=== PATIENT | male | born 1950 | race Caucasian/White ===

== ENCOUNTER 2023-04-28 10:30 | Outpatient (OUT) | payer MEDICARE, SELFPAY ==
--- NOTE | 2023-04-28 11:27 | XR_ITS ---
[facility] [place] [id number] Patient Name: PETROS BURK MRN: [id number] date: 1950 Sex: M Assigned Patient Location: [facility] Current Patient Location: [facility] Accession/Order Number: [id number] Exam Date: 04/28/2023 11:00 Report Date: 04/28/2023 15:19 At the request of: MIGDALIA SARGENT Procedure: XR lumbar spine 6V w bending XR lumbar spine 6V w bending, 04/28/2023 11:00 AM EDT, [place]001 INDICATION: Low back pain M54.50 COMPARISON: None TECHNIQUE: 7 images are submitted, including bilateral oblique and lateral flexion and extension views. FINDINGS: The vertebral bodies demonstrate normal sagittal alignment. There is slight anterolisthesis of L4 on L5 with flexion. No increased motion is seen with extension. No acute fracture or subluxation is identified. There is disc space narrowing at L5-S1, and mild endplate osteophyte formation throughout the lumbar spine. There is sclerosis of the facet joints at L4-L5 and L5/S1, and to a lesser extent at L3-L4. The oblique views demonstrate no evidence of spondylolysis. The visualized soft tissues appear unremarkable. XR/XR lumbar spine 6V w bending IMPRESSION: Degenerative changes. Slight increased motion is seen at L4-L5 with flexion. No acute fracture or subluxation is seen. Electronically authenticated by: WENDY ESCOBAR Date: 04/28/2023 15:19
== END 2023-04-28 10:31 | disposition home or self-care (01) ==
LOC: RAD 10:37
PROVIDERS: PCP Internal Medicine; Visit Provider Internal Medicine
DX: M54.50 Low back pain, unspecified (principal)
CPT/HCPCS: 72114

== ENCOUNTER 2023-05-05 10:51 | Outpatient (OUT) | payer MEDICARE, SELFPAY ==
[2023-05-05 11:36] LABS: Basophils Percent Auto 0.3 % (0.2-2.0); Eosinophils Percent Auto 0.5 % (0.9-7.0); Hematocrit 42.8 % (42.0-54.0); Hemoglobin 14.5 g/dL (14.0-18.0); Immature Granulocytes Abs Auto 0.03 10^3/uL (0.00-0.03); Immature Granulocytes Pct Auto 0.5 % (0.0-0.5); Lymphocytes Absolute Auto 1.2 10^3/uL (1.2-3.8); Lymphocytes Percent Auto 17.5 % (20.5-60.0); Mean Corpuscular HGB Conc 33.9 g/dL (29.9-35.2); Mean Corpuscular Hemoglobin 30.9 pg (25.9-34.0); Mean Corpuscular Volume 91.3 fL (80.0-94.0); Mean Platelet Volume 11.4 fL (9.5-13.5); Monocytes Absolute Auto 0.6 10^3/uL (0.3-0.8); Monocytes Percent Auto 9.4 % (1.7-12.0); Neutrophils Absolute Auto 4.7 10^3/uL (1.4-6.5); Neutrophils Percent Auto 71.8 % (43.0-75.0); Platelet Count 133 10^3/uL (150-450); Red Blood Count 4.69 10^6/uL (4.70-6.10); Red Cell Distribution Width 12.7 % (11.0-15.0); White Blood Count 6.6 10^3/uL (4.0-11.0)
[2023-05-05 12:23] LABS: Alanine Aminotransferase 13 U/L (16-63); Albumin Globulin Ratio 0.7; Albumin Level 3.1 g/dL (3.4-5.0); Alkaline Phosphatase 117 U/L (46-116); Anion Gap 11.3; Aspartate Amino Transferase 17 U/L (15-37); Bilirubin Total 1.2 mg/dL (0.2-1.0); Calcium 8.6 mg/dL (8.5-10.1); Carbon Dioxide 25.3 mmol/L (21.0-32.0); Chloride 100 mmol/L (98-107); Estimated GFR (African America >60 (>=60); Estimated GFR (Non-African Ame >60 (>=60); Globulin 4.5 g/dL; Glucose 105 mg/dL (74-106); Potassium 3.6 mmol/L (3.5-5.1); Sodium 133 mmol/L (136-145); Thyroid Stimulating Hormone 1.704 uIU/mL (0.358-3.740); Total Protein 7.6 g/dL (6.4-8.2)
== END 2023-05-05 10:52 | disposition home or self-care (01) ==
LOC: LAB 10:52
PROVIDERS: PCP Internal Medicine; Visit Provider Internal Medicine
DX: G45.4 Transient global amnesia (principal); R03.0 Elevated blood-pressure reading, without diagnosis of hypertension; R53.83 Other fatigue
CPT/HCPCS: 36415; 80053; 82607; 84443; 85025